=== PATIENT | male | born 1975 | race Caucasian/White ===

== ENCOUNTER 2016-11-10 23:40 | Emergency (ER) | payer BC | END 2016-11-11 02:38 | disposition home or self-care (01) | LOC: ER 23:40 | PROC: 0PSH0ZZ Reposition Right Radius, Open Approach (ICD-10-PCS; principal; 2016-11-10) | DX: S52.531A Colles' fracture of right radius, initial encounter for closed fracture (principal); W19.XXXA Unspecified fall, initial encounter | CPT/HCPCS: 73100-RT; 73110-RT; 73130-RT; 96374; 96375; 96376; 99284; A9270-GY; J2405 ==